=== PATIENT | male | born 1985 ===

== ENCOUNTER 2021-07-09 18:22 | Emergency (ER) | payer OTHER, SELFPAY ==
--- NOTE | 2021-07-09 18:29 | ED.BACK ---
HPI - Back Pain/Injury General Chief Complaint: Back Pain/Injury Stated Complaint: Pain lower back and in left chest now Time Seen by Provider: 07/09/21 18:29 Source: patient, family and RN notes reviewed History of Present Illness HPI Narrative: Patient is a 35-year-old male who presents the urgent care with complaints of mid back pain and left chest pain intermittently. Patient states it is not consistent and does come and go. Patient states that it started off and on approximately 3 weeks ago and seems to be more consistent over the last couple days. Patient states that the Maalox that he took earlier today did seem to improve the discomfort. Patient does have a history of GERD. His states that she believes he is very anxious and is may be causing of his hypochondriac and chest pain . Patient is concerned about his gallbladder due to having a mother that just recently of gallbladder cancer. Patient denies of any fevers, nausea, vomiting. Patient does have inguinal hernias and has intermittent suprapubic tenderness and pains. Denies of any urinary issues. Patient is currently in no acute distress at this time. Currently denies of left chest discomfort. No other acute complaints. No acute distress noted. Patient aware of the plan of care. Some parts of this dictation were generated by voice recognition software and may contain typographical and/or grammatical inaccuracies. Related Data Home Medications Medication Instructions Recorded Confirmed buspirone 5 mg PO DAILY 07/09/21 07/09/21 Allergies Allergy/AdvReac Type Severity Reaction Status Date / Time egg Allergy Unknown Unknown Verified 07/09/21 18:40 Penicillins Allergy Unknown Unknown Verified 07/09/21 18:40 Review of Systems Review of Systems: CONSTITUTIONAL: Denies fever, chills, or sweats. EYES: Denies visual changes, redness, or discharge. ENT: Denies rhinorrhea, congestion, sore throat, or otalgia. CARDIOVASCULAR: As of intermittent left chest discomfort without palpitations RESPIRATORY: Denies cough or dyspnea. GASTROINTESTINAL: Denies abdominal pain, nausea, vomiting, or diarrhea. GENITOURINARY: Denies dysuria or hematuria. SKIN: Denies rash or itching. MUSCULOSKELETAL: Reports of mid to upper back pain NEUROLOGIC: Denies headache, numbness, or weakness. All other systems reviewed are negative, except as documented in HPI. [facility] Family History Family History (Updated 09/18/18 @ 11:13 by DOCTOR UNKNOWN) Other Diabetes mellitus Family history of malignant neoplasm Social History Social History Alcohol intake: current Comments At the time of my signature, I reviewed and agree with the nursing past medical, surgical, social, and family history. There is no relevant family history pertinent to the patient complaint. Exam Narrative: GENERAL: This is a well-nourished, well-developed patient, in no apparent distress. HEAD: normocephalic, atraumatic. EYES: PERRL. Sclera clear/white. Vision is grossly intact. EARS: External ears normal NOSE: External nose normal with no obvious nasal discharge, nares without redness, no rhinorrhea. THROAT: Mucous membranes moist, posterior pharynx clear. NECK: Neck supple CARDIOVASCULAR: Regular rate and rhythm without murmurs, gallops, or rubs. RESPIRATORY: Clear to auscultation. Breath sounds equal bilaterally. No wheezes, rales, or rhonchi. GASTROINTESTINAL: Abdomen soft, nondistended. Mild to moderate suprapubic/inguinal tenderness due to inguinal hernia. Bowel sounds are active. No hepato-splenomegaly, or palpable masses. No guarding. SKIN: warm, intact with no suspicious lesions or rash, good texture and turgor. NEURO: awake, alert, and oriented to person, place and time. There were no obvious focal neurologic abnormalities. EXTREMITIES: No clubbing, cyanosis, or edema. BACK: Nontender without deformity or crepitance. No flank tenderness. Course Course Level of Care: [facility] Visi
[2021-07-09 18:30] VITALS: BP 146/109; PULSE 106; RESP 16; TEMP 37.2; O2SAT 99
--- NOTE | 2021-07-09 18:39 | ECG_ITS ---
Measurements Intervals [place] Rate: 82 P: 34 AL: 163 QRS: 13 QRSD: 86 T: 56 QT: 353 QTc: 414 Interpretive Statements SINUS RHYTHM NO PREVIOUS ECG AVAILABLE FOR COMPARISON Electronically Signed On 07-10-2021 14:26:18 CDT by Mauri Beach M.D.
== END 2021-07-09 19:25 | disposition home or self-care (01) ==
PROVIDERS: Emergency Provider Nurse Practitioner Family; PCP Internal Medicine
DX: F41.9 Anxiety disorder, unspecified (principal)
CPT/HCPCS: 93005; 99213; G0463

== ENCOUNTER 2022-01-25 17:25 | Emergency (ER) | payer OTHER, SELFPAY ==
[2022-01-25] VITALS (8 sets, daily range): BP systolic 131–153; BP diastolic 90–116; PULSE 72–99; RESP 9–18; TEMP 36.6; O2SAT 95–99
--- NOTE | ~2022-01-25 | XR_ITS ---
EXAMINATION: XR chest 2V DATE: 01/25/2022 18:43 INDICATION: Chest pain. TECHNIQUE: Frontal and lateral views of the chest were obtained. COMPARISON: None. FINDINGS: The chest demonstrates clear lungs without pneumonia, pleural effusion, or pneumothorax. Th e heart size is normal. IMPRESSION: 1. No acute cardiopulmonary disease. Reviewed, dictated and finalized at location A.
--- NOTE | 2022-01-25 18:10 | ECG_ITS ---
Measurements Intervals [place] Rate: 73 P: 22 MA: 179 QRS: -11 QRSD: 102 T: 52 QT: 368 QTc: 407 Interpretive Statements SINUS RHYTHM CANNOT RULE OUT SEPTAL MYOCARDIAL INFARCTION , OLD COMPARED TO ECG 07/09/2021 18:56:11 NO CHANGE Electronically Signed On 01-26-2022 13:55:15 CDT by Arsen Jorge M.D.
--- NOTE | 2022-01-25 18:10 | ED.RECABL ---
HPI - Recheck/Abnormal Lab/Rx General Chief Complaint: Recheck/Abnormal Lab/Rx Stated Complaint: high bp, weak Time Seen by Provider: 01/25/22 17:43 History of Present Illness HPI narrative: Patient is a 36-year-old male with a history of anxiety here for evaluation of numerous symptoms. Patient states that he was standing talking to his children on the couch about their day, when he developed a chest tightness, in the center of his chest. He then felt nauseated, lightheaded, and sat down due to the symptoms. The chest pain resolved without intervention after several seconds, but patient took his blood pressure and noted that it was 180 systolic. After resting for about 30 minutes the blood pressure decreased to about 150 systolic. Patient presents today due to the symptoms and the elevated blood pressures at home. He states his blood pressure has been elevated every time he comes to the doctor's office for the past several months, but he is not on any antihypertensives. He has no cardiac history. Denies any shortness of breath, fevers, chills, vomiting, leg swelling, cough. Related Data Home Medications Medication Instructions Recorded Confirmed buspirone 5 mg tablet 5 mg PO DAILY 07/09/21 07/09/21 Allergies Allergy/AdvReac Type Severity Reaction Status Date / Time egg Allergy Unknown Unknown Verified 01/25/22 18:36 Penicillins Allergy Unknown Unknown Verified 01/25/22 18:36 Review of Systems Review of Systems: Gen: Denies fevers or chills Eyes: Denies eye pain or visual change ENT: Denies congestion Respiratory: Denies shortness of breath or cough CV: Reports chest pain. GI: Reports nausea. Denies abdominal pain, emesis or diarrhea denies burning, urgency, frequency or hematuria Musculoskeletal: Denies back pain or muscle pain Neuro: Denies numbness, tingling, weakness or focal weakness Skin: Denies rash Except as documented, all other systems reviewed and negative PMFSH Family History Family History (Updated 09/18/18 @ 11:13 by DOCTOR UNKNOWN) Other Diabetes mellitus Family history of malignant neoplasm Social History Social History Alcohol intake: current Exam Narrative: APPEARANCE: Well appearing, no pain in distress, well-nourished. Head: Normocephalic and atraumatic. EYES: PERRLA/EOMI, conjunctivae clear NOSE: No nasal drainage EARS: External ear normal in appearance THROAT: Oropharynx is clear. Mucous membranes are moist. NECK: Supple. No adenopathy, no masses. RESPIRATORY: Airway patent, respirations nonlabored. Clear to auscultation bilaterally, no rales, rhonchi, wheezing. CARDIOVASCULAR: Tachycardic. Regular rhythm without murmurs, rubs, or gallops. ABDOMINAL: Normoactive bowel sounds. Soft, nontender, nondistended. No rebound tenderness or guarding. MUSCULOSKELETAL: Extremities are warm and well-perfused. Moves all extremities well. No edema. NEURO: Normal speech. No focal neurologic deficits. SKIN: Skin is warm and dry. No rashes. PSYCHIATRIC: Normal affect/mood. Course Vital Signs Vital signs: Vital Signs Temperature 98 F 01/25/22 17:31 Pulse Rate 99 01/25/22 17:31 Respiratory Rate 18 01/25/22 17:31 Blood Pressure 153/116 H 01/25/22 17:31 Pulse Oximetry 99 01/25/22 17:31 Oxygen Delivery Room Air 01/25/22 17:31 Temperature 98 F 01/25/22 17:31 Pulse Rate 72 01/25/22 19:30 Respiratory Rate 9 L 01/25/22 19:30 Blood Pressure 131/90 01/25/22 19:01 Pulse Oximetry 97 01/25/22 19:30 Oxygen Delivery Room Air 01/25/22 17:31 MDM - Recheck/Abnormal Lab/Rx MDM Narrative Medical decision making narrative: 36-year-old male here for evaluation of elevated blood pressure reads at home up to 180 systolic without diagnosis of hypertension in the setting of multiple symptoms that sound like anxiety. Upon arrival patient's blood pressure was 153/116. The rest of his vital signs are normal. He is nontoxic-appearing. EKG and troponin
[2022-01-25 18:38] LABS: Basophils Percent Auto 0.5 % (0.2-1.2); Eosinophils Absolute Auto 0.1 K/mm3 (0-0.3); Eosinophils Percent Auto 1.6 % (0-4.4); Hematocrit 46.4 % (42.0-52.0); Hemoglobin 16.2 g/dL (14.0-18.0); Immature Granulocyte Absolute 0.03 K/mm3 (0.00-0.031); Immature Granulocyte Percent A 0.5 % (0-0.5); Lymphocytes Percent Auto 20.5 % (18.3-44.2); Mean Corpuscular HGB Conc 34.9 g/dl (32-36); Mean Corpuscular Hemoglobin 29.5 pg (26-34); Mean Corpuscular Volume 84.4 fl (80-100); Monocytes Absolute Auto 0.5 K/mm3 (0.1-0.6); Monocytes Percent Auto 8.2 % (2.6-8.5); Neutrophils Absolute Auto 4.4 K/mm3 (1.3-6.7); Neutrophils Percent Auto 68.7 % (45.5-73.1); Platelet Count Result 173 k/mm3 (150-375); Red Cell Distribution Width 11.7 % (11.5-14.5); White Blood Count 6.3 K/mm3 (4.5-10.0)
[2022-01-25 18:48] LABS: Alanine Aminotransferase 33 U/L (6-50); Albumin Level 4.7 g/dL (3.5-5.1); Alkaline Phosphatase 58 U/L (38-126); Anion Gap 10 mmol/L (8-16); Aspartate Amino Transferase 28 U/L (17-59); Bilirubin,Total 0.7 mg/dL (0.2-1.3); Blood Urea Nitrogen 9 mg/dL (9-20); Calcium 8.8 mg/dL (8.4-10.2); Carbon Dioxide 24 mmol/L (22-30); Chloride 106 mmol/L (98-107); Estimated CRCL calculation 88 ml/min; Estimated Glomerular Filt Rate > 60; Glucose 91 mg/dL (65-110); INR 1.1; Lipase 111 U/L (23-300); Partial Thromboplastin Time 29.4 SECONDS (22.3-36.8); Potassium 3.9 mmol/L (3.4-5.0); Prothrombin Time 13.5 Seconds (11.1-14.7); Sodium 140 mmol/L (137-145)
[2022-01-25 19:00] LABS: Troponin I < 0.012 ng/mL (0.000-0.034)
[2022-01-25 19:31] LABS: D Dimer < 0.27 ug/mL (<0.48)
== END 2022-01-25 20:03 | disposition home or self-care (01) ==
PROVIDERS: Physician Assistant; Emergency Provider Emergency Medicine; PCP Internal Medicine
DX: R03.0 Elevated blood-pressure reading, without diagnosis of hypertension (principal); R94.31 Abnormal electrocardiogram [ECG] [EKG]
CPT/HCPCS: 36415; 71046; 80053; 83690; 84484; 85025; 85380; 85610; 85730; 93005; 99284

== ENCOUNTER 2022-02-22 12:37 | Emergency (ER) | payer OTHER, SELFPAY ==
[2022-02-22] VITALS (11 sets, daily range): BP systolic 121–160; BP diastolic 85–98; PULSE 66–132; RESP 12–20; TEMP 36.9; O2SAT 95–100
--- NOTE | ~2022-02-22 | XR_ITS ---
EXAMINATION: XR chest 2V 02/22/2022 13:21 INDICATION: Left-sided chest pain. Hypertension. PROCEDURE: 2 view chest COMPARISON: 01/25/2022 FINDINGS: The lungs are clear. The cardiomediastinal silhouette is within normal limits. There are no pleural effusions. There is no pneumothorax suspected. IMPRESSION: 1: NO ACUTE CARDIOPULMONARY DISEASE. Reviewed, dictated and finalized at location A. [facility]
--- NOTE | 2022-02-22 12:38 | ECG_ITS ---
Measurements Intervals [place] Rate: 133 P: 46 MT: 172 QRS: -12 QRSD: 84 T: 62 QT: 277 QTc: 413 Interpretive Statements SINUS TACHYCARDIA ANTEROSEPTAL INFARCT, AGE INDETERMINATE ABNORMAL ECG COMPARED TO ECG 01/25/2022 19:19:48 SINUS TACHYCARDIA NOW PRESENT Electronically Signed On 02-22-2022 12:48:44 SOCIAL SERVICES AIDE by Dustin Yanes D.O.
[2022-02-22 12:56] LABS: Basophils Percent Auto 0.4 % (0.2-1.2); Eosinophils Absolute Auto 0.1 K/mm3 (0-0.3); Eosinophils Percent Auto 1.1 % (0-4.4); Hematocrit 49.6 % (42.0-52.0); Hemoglobin 17.2 g/dL (14.0-18.0); Immature Granulocyte Absolute 0.03 K/mm3 (0.00-0.031); Immature Granulocyte Percent A 0.4 % (0-0.5); Lymphocytes Absolute Auto 2.24 K/mm3 (0.9-3.2); Lymphocytes Percent Auto 27.4 % (18.3-44.2); Mean Corpuscular HGB Conc 34.7 g/dl (32-36); Mean Corpuscular Hemoglobin 29.3 pg (26-34); Mean Corpuscular Volume 84.5 fl (80-100); Mean Platelet Volume 9.2 fl (7.4-10.4); Monocytes Absolute Auto 0.8 K/mm3 (0.1-0.6); Neutrophils Percent Auto 60.7 % (45.5-73.1); Platelet Count Result 204 k/mm3 (150-375); Red Blood Count 5.87 M/mm3 (4.6-6.20); Red Cell Distribution Width 11.9 % (11.5-14.5); White Blood Count 8.2 K/mm3 (4.5-10.0)
[2022-02-22 13:08] LABS: Alanine Aminotransferase 34 U/L (6-50); Albumin Level 5.2 g/dL (3.5-5.1); Alkaline Phosphatase 68 U/L (38-126); Anion Gap 19 mmol/L (8-16); Aspartate Amino Transferase 33 U/L (17-59); Blood Urea Nitrogen 10 mg/dL (9-20); Calcium 9.3 mg/dL (8.4-10.2); Carbon Dioxide 22 mmol/L (22-30); Chloride 100 mmol/L (98-107); Estimated CRCL calculation 94 ml/min; Estimated Glomerular Filt Rate > 60; Glucose 113 mg/dL (65-110); Lipase 106 U/L (23-300); Partial Thromboplastin Time 28.7 SECONDS (22.3-36.8); Potassium 3.5 mmol/L (3.4-5.0); Sodium 141 mmol/L (137-145)
[2022-02-22 13:20] LABS: Troponin I < 0.012 ng/mL (0.000-0.034)
--- NOTE | 2022-02-22 15:47 | ED.GENADULT ---
HPI - General Adult General Chief complaint: Arrhythmia/Palpitations Stated complaint: FAST HEART RATE Time Seen by Provider: 02/22/22 15:34 Source: RN notes reviewed History of Present Illness HPI narrative: Patient presents emergency department from home for heart palpitations. Patient states that this morning woke up with some sinus congestion and then proceeded feeling his heart was racing he states that he kept feeling like his heart was skipping and racing this morning states he had asked his friend to bring him to the emergency department mother driving or his heart rate became even more fast he states that it was associated with pain over the left side of his chest that is described as a pressure. States he also felt nauseous when his heart was racing up in the 120s states he is feeling better at this time. He denies any fevers or chills he denies any abdominal pain vomiting or diarrhea. States he did not take any medication for his sinus congestion this morning. States he was seen for similar episodes approximately 3 weeks ago in the ED Related Data Home Medications Medication Instructions Recorded Confirmed buspirone 5 mg tablet 5 mg PO DAILY 07/09/21 07/09/21 Allergies Allergy/AdvReac Type Severity Reaction Status Date / Time egg Allergy Unknown Unknown Verified 01/25/22 18:36 Penicillins Allergy Unknown Unknown Verified 01/25/22 18:36 Review of Systems Review of Systems: Gen.: Denies fevers or chills Eyes: Denies eye pain or visual change ENT: Reports sinus congestion Respiratory: Reports shortness of breath with chest palpitations CV: See HPI GI: Denies abdominal pain emesis or diarrhea reports nausea Musculoskeletal: Denies back pain or muscle pain Neuro: Denies numbness, tingling, weakness or focal weakness Skin: Denies rash Except as documented, all other systems reviewed and negative [facility] Past Medical History Medical History (Updated 02/22/22 @ 17:50 by Juan Jose Al DO) Patient denies significant medical history Family History Family History (Updated 09/18/18 @ 11:13 by DOCTOR UNKNOWN) Other Diabetes mellitus Family history of malignant neoplasm Social History Social History (Updated 02/22/22 @ 15:49 by Juan Jose Al DO) Smoking status: Never smoker Alcohol intake: current Exam Narrative: APPEARANCE: No acute distress, nontoxic, resting in bed EYES: EOMI HEENT: Normocephalic, atraumatic, TMs clear bilaterally nares patent or mucosa moist erythema exudate posterior pharynx RESPIRATORY: No respiratory distress Clear to auscultation bilaterally with no rhonchi wheezing or rales. CARDIOVASCULAR: Regular rate and rhythm without murmurs rubs or gallops. ABDOMINAL: Soft, nontender, nondistended, no rebound or guarding MUSCULOSKELETAl: Moves all extremities. No clubbing, cyanosis or edema. NEURO: Awake and alert. Following commands, speech normal, no focal deficits SKIN:: Warm, dry. No rashes lesions or abrasions PSYCHIATRIC: Normal affect/mood, Course Course Emergency Course: Since patient has been brought back from triage heart rate has been in the 70s and 80s currently resting in bed Reviewed previous ED visit Discussed with patient results of workup and diagnosis. Discussed need for follow-up with primary care, proper use of medication, and reasons to return to the emergency department. Patient understands and agrees to current treatment plan. Discussed with patient need for follow-up with cardiology for possible Holter monitor Vital Signs Vital signs: Vital Signs Pulse Rate 132 H 02/22/22 12:54 Respiratory Rate 20 02/22/22 12:54 Blood Pressure 160/98 H 02/22/22 12:54 Pulse Oximetry 100 02/22/22 12:54 Oxygen Delivery Room Air 02/22/22 12:54 Temperature 98.4 F 02/22/22 17:04 Pulse Rate 72 02/22/22 17:03 Respiratory Rate 12 02/22/22 16:00 Blood Pressure 127/94 H 02/22/22 17:03 Pulse Oximetry 100 02/22/22 12:54 [employer]xygen [employer]
--- NOTE | 2022-02-22 15:50 | ECG_ITS ---
Measurements Intervals [place] Rate: 67 P: 7 [place]: 165 QRS: -2 QRSD: 92 T: 57 QT: 378 QTc: 400 Interpretive Statements SINUS RHYTHM CANNOT RULE OUT SEPTAL INFARCT, AGE INDETERMINATE ABNORMAL ECG COMPARED TO ECG 02/22/2022 12:41:11 SINUS RHYTHM NOW PRESENT Electronically Signed On 02-22-2022 20:43:52 WATER REGULATOR AND VALVE REPAIRER by Dustin Yanes D.O.
[2022-02-22] MEDS: SODIUM CHLORIDE 0.9% IV 1,000 ML 999 ML IV CONT (16:03)
[2022-02-22 16:10] LABS: Magnesium 2.1 mg/dL (1.6-2.3)
[2022-02-22 16:12] LABS: D Dimer 0.32 ug/mL (<0.48)
[2022-02-22 16:24] LABS: Troponin I < 0.012 ng/mL (0.000-0.034)
[2022-02-22 16:43] LABS: Thyroid Stimulating Hormone 0.969 uIU/mL (0.465-4.680)
[2022-02-22 17:15] LABS: Influenza A QL RT-PCR Negative (Negative); Influenza B QL RT-PCR Negative (Negative); SARS-CoV-2 RNA PCR Negative
== END 2022-02-22 18:17 | disposition home or self-care (01) ==
PROVIDERS: Emergency Provider Emergency Medicine
DX: R00.2 Palpitations (principal); Z20.822 Contact with and (suspected) exposure to COVID-19; R00.0 Tachycardia, unspecified; R94.31 Abnormal electrocardiogram [ECG] [EKG]
CPT/HCPCS: 36415; 71046; 80053; 83690; 83735; 84443; 84484; 85025; 85380; 85610; 85730; 87636; 93005; 96360; 96361; 99284; J7030